=== PATIENT | male | born 1950 | race Caucasian/White ===

== ENCOUNTER 2023-04-13 10:57 | Inpatient (IN) | payer OTHER, MEDICARE ==
[2023-04-13 12:19] LABS: HEMATOCRIT 19.6 % (35.4-49); MCH 34.5 pg (25.7-33.7); MCHC 33.7 g/dl (32.0-35.9); MEAN CELL VOLUME 102.4 fl (80-96); PLATELET COUNT 145 10^3/uL (134-434); RBC 1.91 M/mm3 (4.00-5.60); RDW 20.5 % (11.9-15.9); WHITE BLOOD COUNT 2.5 K/mm3 (4.0-10.0)
[2023-04-13 12:23] LABS: HEMOGLOBIN 6.6 GM/dL (11.7-16.9)
[2023-04-13 12:34] LABS: POTASSIUM 4.4 mmol/L (3.5-5.1)
[2023-04-13 12:36] LABS: BLOOD UREA NITROGEN 23.2 mg/dL (7-18); CALCIUM 8.9 mg/dL (8.5-10.1)
[2023-04-13 12:38] LABS: ALBUMIN 3.6 g/dl (3.4-5.0)
[2023-04-13 12:39] LABS: CREATININE 1.3 mg/dL (0.55-1.3)
[2023-04-13 12:42] LABS: BILIRUBIN,TOTAL 1.5 mg/dL (0.2-1); TOT PROT 6.4 g/dl (6.4-8.2)
[2023-04-13 12:44] LABS: N-TERMINAL BNP 293.5 pg/ml (5-125)
[2023-04-13 13:52] LABS: ANISOCYTOSIS 1+; MACROCYTOSIS 1+
[2023-04-14 06:59] LABS: HEMATOCRIT 21.8 % (35.4-49); HEMOGLOBIN 7.6 GM/dL (11.7-16.9); MCH 33.4 pg (25.7-33.7); MCHC 34.6 g/dl (32.0-35.9); MEAN CELL VOLUME 96.5 fl (80-96); MEAN PLT VOLUME 6.8 fl (7.5-11.1); PLATELET COUNT 110 10^3/uL (134-434); RBC 2.26 M/mm3 (4.00-5.60); RDW 21.1 % (11.9-15.9); WHITE BLOOD COUNT 2.2 K/mm3 (4.0-10.0)
[2023-04-14 11:10] LABS: ANISOCYTOSIS 2+; MACROCYTOSIS 0; OVALOCYTE 2+
[2023-04-14] MEDS: CYANOCOBALAMIN 1,000 MCG TABLET (FP) PO SCH (14:17)
[2023-04-14 20:18] VITALS: BMI 27.0
[2023-04-15 07:25] LABS: HEMATOCRIT 22.7 % (35.4-49); HEMOGLOBIN 7.8 GM/dL (11.7-16.9); MCH 33.2 pg (25.7-33.7); MCHC 34.5 g/dl (32.0-35.9); MEAN CELL VOLUME 96.3 fl (80-96); PLATELET COUNT 118 10^3/uL (134-434); RBC 2.35 M/mm3 (4.00-5.60); RDW 20.1 % (11.9-15.9)
[2023-04-15 08:07] LABS: RETICULOCYTES 2.06 % (0.5-1.5)
[2023-04-15 09:56] LABS: ANISOCYTOSIS 1+; MACROCYTOSIS 0
[2023-04-15] MEDS: CYANOCOBALAMIN 1,000 MCG TABLET (FP) PO SCH (10:55)
[2023-04-16 07:00] LABS: HEMATOCRIT 21.9 % (35.4-49); HEMOGLOBIN 7.5 GM/dL (11.7-16.9); MCH 33.4 pg (25.7-33.7); MCHC 34.3 g/dl (32.0-35.9); MEAN CELL VOLUME 97.4 fl (80-96); MEAN PLT VOLUME 6.8 fl (7.5-11.1); PLATELET COUNT 110 10^3/uL (134-434); RBC 2.25 M/mm3 (4.00-5.60); RDW 19.9 % (11.9-15.9)
[2023-04-16 07:14] LABS: POTASSIUM 4.1 mmol/L (3.5-5.1)
[2023-04-16 07:17] LABS: ALBUMIN 3.2 g/dl (3.4-5.0); CALCIUM 8.3 mg/dL (8.5-10.1); MAGNESIUM 2.3 mg/dL (1.8-2.4)
[2023-04-16 07:20] LABS: CREATININE 1.2 mg/dL (0.55-1.3)
[2023-04-16 07:21] LABS: PHOSPHOROUS 3.4 mg/dL (2.5-4.9)
[2023-04-16 07:22] LABS: BILIRUBIN,TOTAL 1.3 mg/dL (0.2-1); TOT PROT 5.8 g/dl (6.4-8.2)
[2023-04-16 09:32] LABS: ANISOCYTOSIS 0; HELMET CELLS 0; HOWELL-JOLLY BODIES 0; MACROCYTOSIS 0; OVALOCYTE 0; ROULEAU 0; SICKELED CELLS 0; TARGET CELLS 0; TEAR DROP CELLS 0; TOXIC GRANULATION 0
[2023-04-16] MEDS: CYANOCOBALAMIN 1,000 MCG TABLET (FP) PO SCH (10:05)
[2023-04-17 07:31] LABS: INR 1.13 (0.83-1.09); PROTHROMBIN TIME (PATIENT) 13.1 SEC (9.7-13.0)
[2023-04-17 07:32] LABS: ACTIVATED PTT 29.2 SECONDS (25.2-36.5)
[2023-04-17 07:44] LABS: HEMATOCRIT 21.8 % (35.4-49); HEMOGLOBIN 7.6 GM/dL (11.7-16.9); MCH 33.9 pg (25.7-33.7); MCHC 34.9 g/dl (32.0-35.9); MEAN CELL VOLUME 97.1 fl (80-96); MEAN PLT VOLUME 6.8 fl (7.5-11.1); PLATELET COUNT 112 10^3/uL (134-434); RBC 2.24 M/mm3 (4.00-5.60); RDW 19.6 % (11.9-15.9)
[2023-04-17 07:53] LABS: POTASSIUM 4.1 mmol/L (3.5-5.1)
[2023-04-17 09:13] LABS: ANISOCYTOSIS 2+; MACROCYTOSIS 1+
[2023-04-17 09:17] LABS: CALCIUM 8.3 mg/dL (8.5-10.1)
[2023-04-17 09:18] LABS: ALBUMIN 3.2 g/dl (3.4-5.0); MAGNESIUM 2.3 mg/dL (1.8-2.4)
[2023-04-17] MEDS: CYANOCOBALAMIN 1,000 MCG TABLET (FP) PO SCH (09:19)
[2023-04-17 09:21] LABS: BILIRUBIN,TOTAL 1.1 mg/dL (0.2-1); PHOSPHOROUS 3.3 mg/dL (2.5-4.9)
[2023-04-17 09:22] LABS: CREATININE 1.1 mg/dL (0.55-1.3); TOT PROT 5.8 g/dl (6.4-8.2)
[2023-04-17] MEDS ORDERED: SODIUM CHLORIDE 500 ML IV SCH (10:40)
[2023-04-17] MEDS ORDERED: MIDAZOLAM HCL 2 MG/2 ML SINGLE DOSE VIAL ONE (10:58)
[2023-04-17] MEDS ORDERED: FENTANYL CITRATE/PF 50 MCG/ML VIAL ONE (10:58)
[2023-04-17] MEDS ORDERED: FENTANYL CITRATE/PF 50 MCG/ML VIAL IVPUSH ONE (11:49)
[2023-04-17] MEDS ORDERED: MIDAZOLAM HCL 2 MG/2 ML SINGLE DOSE VIAL IVPUSH ONE (11:50)
[2023-04-17 20:18] VITALS: BP 122/75; PULSE 79; RESP 18; TEMP 98.1
== END 2023-04-17 22:23 | disposition home or self-care (01) | DRG 810 ==
LOC: JER 10:57 → JERBED 14:59 → J4W 04-14 18:33
PROVIDERS: ADMIT Internal Medicine; ATTEND Internal Medicine
PROC: 30233N1 Transfusion of Nonautologous Red Blood Cells into Peripheral Vein, Percutaneous Approach (ICD-10-PCS; 2023-04-13)
PROC: 07DR3ZX Extraction of Iliac Bone Marrow, Percutaneous Approach, Diagnostic (ICD-10-PCS; principal; 2023-04-17)
DX: D61.818 Other pancytopenia (principal); R60.0 Localized edema; R42 Dizziness and giddiness; I44.7 Left bundle-branch block, unspecified; H26.9 Unspecified cataract; R06.09 Other forms of dyspnea; R00.2 Palpitations; D62 Acute posthemorrhagic anemia
CPT/HCPCS: 0241U-QW; 20225; 36415; 36430; 71045-TC-FY; 77012-TC; 80053; 82272; 82550; 82607; 82668; 82728; 82746; 82962; 83010; 83540; 83550; 83615; 83735; 83880; 84100; 84443; 84466; 84484; 85025; 85045; 85610; 85730; 86850; 86880; 86900; 86901; 86922; 88300-TC; 93005; 93010; 93306-TC; 99285-25; P9038; P9058